=== PATIENT | female | born 1945 | race Caucasian/White ===

== ENCOUNTER 2017-08-15 07:59 | Outpatient (CLI) | payer MEDICARE ==
--- NOTE | 2017-08-15 08:57 | CT ---
CT OF HEAD NONCONTRAST: COMPARISON: 07/27/15. CLINICAL HISTORY: Tinnitus, followup. FINDINGS: The ventricular system is normal in size. The septum pellucidum and third ventricle are midline. Th ere is physiologic basal ganglia calcification bilaterally. Mild chronic microvascular ischemic dise ase is present. The imaged paranasal sinuses and mastoid air cells are clear. IMPRESSION: No acute intracranial abnormalities. POS: [facility]
== END 2017-08-15 08:00 | disposition home or self-care (01) ==
LOC: MADCT 07:59
PROVIDERS: ATTEND Specialist
DX: H81.49 Vertigo of central origin, unspecified ear (principal)
CPT/HCPCS: 70450

== ENCOUNTER 2019-11-08 17:20 | Emergency (ER) | payer MEDICARE ==
[2019-11-08 17:49] LABS: Eosinophils 2 % (0-10); Hemoglobin 13.5 g/dL (12.0-16.0); Lymphocytes 95 % (21-51); MDiff Complete? YES; Mean Corpuscular HGB CONC 31.1 g/dL (32.0-36.0); Mean Corpuscular Hemoglobin 30.9 pg (27.0-31.0); Mean Corpuscular Volume 99.1 fL (78.0-98.0); Mean Platelet Volume 9.3 fL (7.4-10.4); Monocytes 1 % (0-10); Neutrophil 2 % (42-75); Platelet Count 187 thou/uL (130-400); Red Blood Cell (RBC) Count 4.39 mill/uL (4.20-5.40)
[2019-11-08 17:51] LABS: Manual Diff?? YES
[2019-11-08 17:56] LABS: White Blood Cell (WBC) Count 20.6 thou/uL (4.8-10.8)
[2019-11-08 18:02] LABS: CKMB 0.7 ng/mL (0-6.6)
--- NOTE | 2019-11-08 18:02 | RAD ---
Chest AP view INDICATION: History of chronic lymphocytic leukemia and chest pain COMPARISON: None FINDINGS: Lungs:The lungs are clear Cardiac silhouette:The cardiomediastinal silhouette appears within normal limits. Pulmonary vasculature:Normal Pleural spaces:No pleural effusion or pneumothorax is demonstrated. Upper abdomen:No abnormality seen. Osseous structures: No acute osseous abnormality. Additional findings:None. IMPRESSION: No acute cardiopulmonary abnormality.
[2019-11-08 18:03] LABS: ALT (SGPT) 15 U/L (8-55); AST (SGOT) 16 U/L (5-34); Albumin 4.4 g/dL (3.4-4.8); Alkaline Phosphatase 75 U/L (40-110); Anion Gap 15 mmol/L (10-20); BUN (Urea Nitrogen) 22 mg/dL (9.8-20.1); Bilirubin, Total 0.5 mg/dL (0.2-1.2); CK (CPK) 28 U/L (29-168); Calc. Creatinine Clearance 0 mL/min (70-130); Carbon Dioxide 24 mmol/L (23-31); Chloride 109 mmol/L (98-107); Estimated GFR-MDRD 58; Glucose 99 mg/dL (83-110); Potassium 4.1 mmol/L (3.5-5.1); Protein, Total 6.4 g/dL (6.0-8.3); Sodium 144 mmol/L (136-145)
== END 2019-11-08 18:50 | disposition home or self-care (01) ==
LOC: MADERS 17:20
DX: M94.0 Chondrocostal junction syndrome [Tietze] (principal); F32.9 Major depressive disorder, single episode, unspecified
CPT/HCPCS: 36415; 71045; 80053; 82550; 82553; 83880; 84484; 85025; 93005; 94760

== ENCOUNTER 2020-04-08 21:21 | Emergency (ER) | payer MEDICARE ==
[~2020-04-08 21:21] MED LIST: Sterile Water Irrigation 250 ML BOT ONE
[2020-04-08] MEDS ORDERED: Lidocaine 1% w/Epinephrine 1:100K 20 ML VIAL ONE (21:40)
[2020-04-08] MEDS ORDERED: Adacel (T-DAP) 0.5 ML SYRINGE ONE (21:48)
--- NOTE | 2020-04-08 22:21 | CT ---
HEAD CT WITHOUT CONTRAST: Date: 04/08/2020 COMPARISON: None. HISTORY: Fall, forehead laceration. TECHNIQUE: Axial CT imaging at 5 mm intervals from vertex through skull base without contrast. Coronal and sagit radha reformatted imaging obtained. FINDINGS: There is mild diffuse cerebral volume loss with associated prominence of the CSF-containing spaces. N o intracranial hemorrhage, midline shift, or mass effect is noted. There is soft tissue swelling in the periorbital and supraorbital region on the left with a few foci of gas within the soft tissues consistent with laceration. There is an obliquely oriented fracture involving the anterior wall of the maxillary sinus laterally on the left. There is also a fracture of the posterior wall of the maxillary sinus on the left. There is a fracture of the orbital floor on the left with mild depression. No evidence for entrapment of the left inferior rectus muscle. The zygomatic arches appear intact. Nasal bones appear intact. No evidence for a medial orbital wall fracture is seen on the coronal reformatted imaging. There is near complete opacification of the maxillary sinus on the left. IMPRESSION: Periorbital soft tissue swelling/laceration on the left. There is a fracture involving the posterior and anterior mo[place] of the left maxillary sinus, as well as an orbital floor fracture on the left with mild depression. POS: [facility]
== END 2020-04-08 23:04 | disposition home or self-care (01) ==
LOC: MADERS 21:21
DX: S02.40DA Maxillary fracture, left side, initial encounter for closed fracture (principal); S02.32XA Fracture of orbital floor, left side, initial encounter for closed fracture; S01.81XA Laceration without foreign body of other part of head, initial encounter; F32.9 Major depressive disorder, single episode, unspecified; Z85.6 Personal history of leukemia; W19.XXXA Unspecified fall, initial encounter
CPT/HCPCS: 12013; 70450; 90471; 90715